=== PATIENT | male | born 1975 ===

== ENCOUNTER 2024-07-21 18:57 | Emergency (ER) | payer OTHER, SELFPAY ==
--- NOTE | 2024-07-21 19:42 | PC.NURSE ---
Pt states he is feeling better and decided he did not want to be evaluated. RN encourage pt to stay, continues to refuses to stay. Instructed to return to ER if condition changes
== END 2024-07-21 20:06 | disposition left against medical advice (07) ==
LOC: ANHED 20:02
PROVIDERS: PCP Family Medicine
DX: Z53.21 Procedure and treatment not carried out due to patient leaving prior to being seen by health care provider (principal)
CPT/HCPCS: 99199